=== PATIENT | female | born 1950 | race Caucasian/White ===

== ENCOUNTER 2021-12-02 11:15 | Emergency (ER) | payer MEDICARE ==
[~2021-12-02] VITALS: Ht 165.1 cm; Wt 63.0 kg
[2021-12-02 11:37] VITALS: BP 145/74
[2021-12-02] MEDS ORDERED: OMEPRAZOLE DR20 MG PO (11:44)
[2021-12-02] MEDS ORDERED: ALENDRONATE SOD70 MG PO (11:44)
[2021-12-02] MEDS ORDERED: ACETAMINOP160 MG/5 M PO (11:45)
[2021-12-02 12:02] VITALS: BP 169/118
[2021-12-02 12:05] LABS: HEMATOCRIT 40.7 % (37.0-47.0); HEMOGLOBIN 12.9 g/dl (12.0-16.0); IMMATURE GRANULOCYTES 0.4 % (0.0-5.0); MEAN CELL VOLUME 97.4 fL CALC (80.0-100.0); MEAN CORPUSCULAR HGB 30.9 pG CALC (26.0-32.0); MEAN CORPUSCULAR HGB CONC 31.7 g/dL CAL (32.0-36.0); NEUT# 3.15 thou/uL (2.00-7.15); RED BLOOD COUNT 4.18 mill/uL (4.20-5.60); RED CELL DISTRI WIDTH 13.3 % (11.5-15.5)
[2021-12-02 12:24] LABS: INTERNATIONAL NORMALIZED RATIO 0.9 RATIO (0.7-1.3); PROTHROMBIN TIME 9.7 SECONDS (9.0-12.5)
[2021-12-02 12:26] LABS: ALBUMIN 4.2 g/dL (3.2-5.0); ALKALINE PHOSPHATASE 45 u/l (38-126); ANION GAP 11 (6-22 (CALC)); BILIRUBIN, TOTAL 0.4 mg/dL (0.0-1.4); BUN 10 mg/dL (8-23); BUN/CREATININE RATIO 14 (12-20 (CALC)); CARBON DIOXIDE 26 mmol/l (22-30); CHLORIDE 106 mmol/l (95-108); CREATININE 0.7 mg/dL (0.5-1.0); GFR > 60 ML/MIN (>=60 (CALC)); GFR FOR AFR.AMER. > 60 ML/MIN (>=60 (CALC)); POTASSIUM 4.1 mmol/l (3.5-5.1); SGOT/AST 25 u/l (9-36); SODIUM 139 mmol/l (137-146); TOTAL PROTEIN 7.1 g/dL (6.3-8.2)
[2021-12-02 12:30] VITALS: BP 115/69
[2021-12-02 13:00] VITALS: BP 131/67
[2021-12-02 13:20] VITALS: BP 131/67
== END 2021-12-02 13:25 | disposition home or self-care (01) ==
LOC: ED 11:15
PROVIDERS: Family Medicine
DX: K92.1 Melena (principal); K64.4 Residual hemorrhoidal skin tags

== ENCOUNTER 2024-10-24 13:20 | Emergency (ER) | payer MEDICAID ==
[~2024-10-24] VITALS: Ht 165.1 cm; Wt 57.8 kg
[~2024-10-24 13:20] MED LIST: ACETAMINOP160 MG/5 M PO; ALENDRONATE SOD70 MG PO; OMEPRAZOLE DR20 MG PO
[2024-10-24 15:25] VITALS: BP 152/74
[2024-10-24 15:30] VITALS: BP 160/85
== END 2024-10-24 15:42 | disposition home or self-care (01) ==
LOC: ED 13:20
DX: U07.1 COVID-19 (principal); R05.9 Cough, unspecified; R06.02 Shortness of breath